=== PATIENT | female | born 1995 | race Hispanic/Latino ===

== ENCOUNTER 2017-07-22 08:52 | Emergency (ER) | payer MEDICAID | END 2017-07-22 09:21 | disposition home or self-care (01) | LOC: EDH 08:52 | DX: K59.00 Constipation, unspecified (principal); G89.29 Other chronic pain; M54.9 Dorsalgia, unspecified; Z88.6 Allergy status to analgesic agent | CPT/HCPCS: 99281 ==

== ENCOUNTER 2018-12-19 18:41 | Emergency (ER) | payer MEDICAID ==
[2018-12-19] MEDS ORDERED: ONDANSETRON HCL 4 MG/2 ML VIAL ONE (18:59)
[2018-12-19] MEDS ORDERED: ACETAMINOPHEN EXTRA STRENGTH 500 MG TABLET ONE (18:59)
[2018-12-19] MEDS ORDERED: SODIUM CHLORIDE 0.9% 1000ML 1,000 ML IV ONE (18:59)
[2018-12-19 19:09] LABS: BASOPHILS % (AUTO) 0.5 % (0.0-5.0); EOSINOPHILS % (AUTO) 0.3 % (0.0-8.0); HEMATOCRIT 38.4 % (36-48); LYMPHOCYTES % (AUTO) 6.1 % (21.0-51.0); MEAN CORPUSCULAR HEMOGLOBIN 26.7 pg (27.0-33.0); MEAN CORPUSCULAR HGB CONC 33.9 g/dL (32.0-36.0); MEAN CORPUSCULAR VOLUME 78.8 fL (79-99); NEUTROPHILS % (AUTO) 83.1 % (40.0-77.0); PLATELET COUNT (AUTO) 202 K/uL (130-400); RED BLOOD CELL COUNT(AUTO) 4.87 MIL/uL (4.00-5.50); RED CELL DISTRIBUTION WIDTH 15.5 % (11.0-15.5); WHITE BLOOD COUNT (AUTO) 5.8 K/uL (4.8-10.8)
[2018-12-19 19:15] LABS: APPEARANCE,URINE Clear (CLEAR); BILIRUBIN,URINE Negative (NEGATIVE); COLOR,URINE Yellow (YELLOW); GLUCOSE, URINE (UA) Negative (NEGATIVE); KETONES,URINE Negative (NEGATIVE); LEUKOCYTE ESTERASE ,URINE Small (NEGATIVE); NITRATE,URINE Negative (NEGATIVE); OCCULT BLOOD,URINE Negative (NEGATIVE); PROTEIN,URINE Negative (NEGATIVE)
[2018-12-19 19:19] LABS: HCG,QUAL RESULT NEGATIVE (NEGATIVE)
[2018-12-19 19:19] LABS: CREATININE 0.7 mg/dL (0.5-1.5); POTASSIUM 3.9 mmol/L (3.5-5.1)
[2018-12-19 19:24] LABS: ALBUMIN 3.7 g/dL (3.5-5.0); BILIRUBIN,TOTAL 0.3 mg/dL (0.2-1.0)
[2018-12-19 19:25] LABS: BACTERIA,URINE Few /HPF (None Seen); RBC,URINE 0-1 /HPF (0-1); SQUAMOUS EPITHELIAL CELL,UR Few /HPF (0-2)
== END 2018-12-19 20:14 | disposition home or self-care (01) ==
LOC: EDH 18:41
DX: R19.7 Diarrhea, unspecified (principal); R11.10 Vomiting, unspecified; R50.9 Fever, unspecified; G89.29 Other chronic pain; M54.9 Dorsalgia, unspecified; F41.9 Anxiety disorder, unspecified
CPT/HCPCS: 36415; 80053; 81001; 81025; 85025; 87804 ×2; 96361; 96374; 99284; J2405; J7030

== ENCOUNTER 2019-07-20 15:51 | Emergency (ER) | payer MEDICAID, OTHER | END 2019-07-20 17:55 | disposition home or self-care (01) | LOC: EDH 15:51 | DX: H92.02 Otalgia, left ear (principal); J06.9 Acute upper respiratory infection, unspecified; I89.1 Lymphangitis; F41.9 Anxiety disorder, unspecified | CPT/HCPCS: 81025 ==

== ENCOUNTER 2021-05-24 08:20 | Emergency (ER) | payer OTHER ==
[~2021-05-24] VITALS: Ht 160 cm; Wt 99.8 kg
[2021-05-24] MEDS ORDERED: LIDOCAINE HCL 2% JELLY 5 ML TP SCH (09:00)
[2021-05-24 09:25] VITALS: BP 132/74
[2021-05-24 09:30] LABS: BILIRUBIN,URINE Negative (NEGATIVE); COLOR,URINE Yellow (YELLOW); GLUCOSE, URINE (UA) Negative (NEGATIVE); KETONES,URINE Negative (NEGATIVE); LEUKOCYTE ESTERASE ,URINE Moderate (NEGATIVE); NITRATE,URINE Negative (NEGATIVE); OCCULT BLOOD,URINE Negative (NEGATIVE); PH,URINE 5.5 (5.0-8.0); PROTEIN,URINE Negative (NEGATIVE)
[2021-05-24 09:32] LABS: APPEARANCE,URINE SLIGHTLY CLOUDY (CLEAR)
[2021-05-24 09:36] LABS: HCG,QUAL RESULT NEGATIVE (NEGATIVE)
[2021-05-24 09:42] LABS: BACTERIA,URINE Few /HPF (None Seen)
[2021-05-24 09:43] LABS: RBC,URINE 0-1 /HPF (0-1)
== END 2021-05-24 09:53 | disposition home or self-care (01) ==
LOC: EDH 08:20
DX: N89.8 Other specified noninflammatory disorders of vagina (principal); R10.2 Pelvic and perineal pain
CPT/HCPCS: 81001; 81025; 87088

== ENCOUNTER 2023-05-26 19:46 | Emergency (ER) | payer BC, OTHER ==
[~2023-05-26] VITALS: Ht 157.5 cm; Wt 98.4 kg
[2023-05-26 19:54] VITALS: BP 156/108; PULSE 104; RESP 16
[2023-05-26] MEDS ORDERED: CIPOTIC OTIC (20:56)
== END 2023-05-26 21:11 | disposition home or self-care (01) ==
LOC: EDH 19:46
DX: H60.91 Unspecified otitis externa, right ear (principal)